=== PATIENT | female | born 1990 | race Hispanic/Latino ===

== ENCOUNTER 2016-11-03 14:52 | Emergency (ER) | payer MEDICAID, OTHER ==
[~2016-11-03] VITALS: Ht 163.8 cm; Wt 57.9 kg
[2016-11-03 15:07] VITALS: RESP 14; O2SAT 98
--- NOTE | 2016-11-03 16:12 | ED.REPORT ---
HPI-General Illness Date of Service Nov 03, 2016 ED Provider: Molly Culp MD The patient was released from assisted and presents to the emergency department with her labor relations supervisor. She was in assisted for "a while" but she is unable to specify. Per nurses notes her labor relations supervisor feels the patient is gravely disabled and disoriented. The patient is unable to answer why she is here today but knows someone brought her here. She states that she is not currently feeling confused. She denies suicidal ideation, homicidal ideation, or hallucinations. She denies history of psychiatric illnesses. History is limited. Nursing Notes Stated Complaint: MENTAL EVAL Chief Complaint: Psychiatric Complaint Nursing Notes Reviewed: Yes Scheduled Cephalexin (Keflex) 500 Mg Capsule 500 MG PO QID General Time Seen by MD: 16:06 Chief Complaint Altered mental status Hx Obtained From: Patient (limited) Arrived By: Walk-in Sudden in Onset?: No Onset Occurred: Onset unknown Symptom Duration: Duration unknown Severity: Current: No pain currently Severity: Maximum: No pain Recent Healthcare: Recent hospitalization Similar Sx Previous: No Past Medical History Past Medical History Pt denies psychiatric history Smoking History Unknown if Ever Smoker Social History Recently released from assisted. Ambulatory Status Independent Unable to Obtain History Past medical history, Past surgical history, Family history, Smoking history Review of Systems Full Review of Systems Psychiatric: Reports: Change mental status, Denies: Hallucinations, auditory, Hallucinations, visual, Homicidal ideation , Suicidal ideation Complete sys rev & neg: except as marked. Physical Exam Vital Signs Vital Signs Date Time Temp Pulse Resp B/P Pulse Ox O2 Delivery O2 Flow Rate FiO2 11/04/16 00:13 35.8 75 12 88/54 96 Room Air 11/03/16 20:14 36.4 77 16 100/66 99 Room Air 11/03/16 17:42 113 16 103/74 98 Room Air 11/03/16 15:07 36.1 14 98 Room Air Initial VS: Reviewed Head / Eyes: Atraumatic, Normocephalic, PERRL ENT: Mucous membranes moist, Conjunctiva normal, No scleral icterus Neck: Supple, Non-tender, Full range of motion Respiratory: Breath sounds normal, Clear to auscultation, No respiratory distress Abdomen / GI: Soft, Non-tender, No guarding, No rebound, No distention Extremities: Vascular intact, Neuro intact, No swelling, No tenderness Skin: Warm, Dry, No cyanosis Neurologic: Alert, Oriented, Nonfocal General/Constitutional: Awake, Alert, No acute distress Disheveled Cardiovascular: Regular rhythm, Heart sounds NL Heart Rate / Rhythm: Positive: Tachycardia Abnormal Mood/Affect: Positive: Flat affect She denies suicidal ideation, homicidal ideation, hallucinations Interpretation & Diagnostics Interpretation & Diagnostics: Urine : negative Urine drug test: positive for THC Breathalyzer: 0 Lab Results Interpretation Result Diagram: 11/03/16 1723 11/03/16 1723 Test 11/03/16 17:23 11/03/16 19:11 White Blood Count 6.5th/mm3 (3.8-10.1) Red Blood Count 5.22mil/mm3 (3.90-5.20) Hemoglobin 15.9g/dL (12.0-15.6) Hematocrit 47.8% (35.0-46.0) Mean Corpuscular Volume 91.6fL (81-100) Mean Corpuscular Hemoglobin 30.5pg (27.0-35.0) Mean Corpuscular Hemoglobin Concent 33.3% (32.0-37.0) Red Cell Distribution Width 13.5% (12.3-15.4) Platelet Count zeb/L (150-400) Neutrophils (%) (Auto) 57.4% (40-74) Lymphocytes (%) (Auto) 30.9% (14-46) Monocytes (%) (Auto) 6.9% (4-12) Eosinophils (%) (Auto) 3.8% (0-5) Basophils (%) (Auto) 0.5% (0-3) Sodium Level 147mEq/L (134-144) Potassium Level 3.9mEq/L (3.5-5.2) Chloride Level 104mEq/L (97-108) Carbon Dioxide Level 24mmol/L (18-29) Blood Urea Nitrogen 21mg/dL (6-20) Creatinine 0.74mg/dL (0.57-1.00) Estimat Glomerular Filtration Rate 138mL/min (>59) Glucose Level 86mg/dL (60-99) Calcium Level 9.3mg/dL (8.5-10.1) Total Bilirubin 0.6mg/dL (0.0-1.2) Aspartate Amino Transf (AST/SGOT) 26U/L (0-50) Alanine Aminotransferase (ALT/SGPT) 18U/L (0-32) Alkaline Phosphatase 63U/L (25-150) Total Protein 8.3g/dL (6.4-8.4) Albumin 4.6g/dL (3.4-5.0) Thyroid Stimulating Hormone (TSH) 0.808uIU/mL (0.450-4.500) Alcohol, Quantitative < 10mg/dL (0-10) Urine Color Yellow (YELLOW) Urine Appearance Clear (CLEAR,HAZY) Urine pH 6.0 (5.0-8.0) Urine Specific Loraine 1.025 (1.003-1.035) Urine Protein Tracemg/dL (NEG,TRACE) Urine Glucose (UA) Negativemg/dL (NEGATIVE) Urine Ketones 40mg/dL (NEGATIVE) Urine Occult Blood Negative (NEGATIVE) Urine Nitrite Negative (NEGATIVE) Urine Bilirubin Negative (NEGATIVE) Urine Urobilinogen Normalmg/dL (NORMAL) Urine Leukocyte Esterase Negative (NEGATIVE) Urine RBC 0-2/hpf (0-2) Urine WBC 6-10/hpf (0-5) Urine Epithelial Cells Few/hpf (NONE-MOD) Urine Crystals None seen (NONE SEEN) Urine Bacteria Moderate/hpf (NONE-FEW) Urine Hyaline Casts None/lpf (NONE) Urine Granular Casts None seen (NONE SEEN) Urine Waxy Casts None seen (NONE SEEN) Urine Red Blood Cell Casts None seen (NONE SEEN) Urine White Blood Cell Casts None seen (NONE SEEN) Urine Mucus Present (None Seen) Urine Trichomonas None seen (NONE SEEN) Urine Yeast None (NONE SEEN) Urinalysis Comment None Urine Culture Reflexed Indicated CT Head Interpretation IMPRESSION: No intracranial disease process. Dictated by: Dalia Tam MD, PhD on 11/03/2016 at 21:44 Study: Head CT no contrast Interpretation / Wet Read by: Interpret - Radiologist Re-Eval/Medical Decision Med Decision/Clinical Course 26-year-old female with unknown medical history brought in by rn case mgr from assisted with concern for disorientation and grave disability. Differential diagnosis includes but is not limited to intracranial mass versus electrolyte abnormality versus psychiatric disorder versus dehydration. Labs show mild dehydration. Patient has been given by mouth fluids in the emergency department. I do not feel she requires IV fluids. She does not show any evidence of acute kidney injury. CT head was negative. She has been medically cleared for evaluation by [facility] who is on their way to evaluate the patient for involuntary admission secondary to grave disability. Care was transitioned to who is aware of pending mental health evaluation. Source of Hx: Old records Time of Eval: 19:02 Re-Evaluation/Progress Note: The patient is unable to provide a urine sample. Nurses attempted in and out catheter and were able to obtain urine. Time of Eval: 20:52 Re-Evaluation/Progress Note: The patient is unwilling to lay flat for CT scan. Will order medication. Time of Eval: 23:00 Re-Evaluation/Progress Note: The patient is medically cleared. Consultation #1: Call Returned at: 16:25 Note: Spoke with Florinda Stuart who believes the patient has been in [facility] for the last 10 days. She is unable to provide any additional information. Consultation #2: Consulted With: dining service worker Call Returned at: 16:35 Note: Spoke with the executive secretary social welfare who was able to get more information about the patient. She was arrested on the and taken to [facility]. She was previously hospitalized at [facility], additional information about this hospitalization is unknown at this time. She was transported from [facility] to [facility] yesterday, booked into the assisted, spent one night, and then she was going to be released this morning but it was noted that she was covered in urine and feces. She is only oriented to self. She has been cooperative until nursing staff attempted to place her into a gown. She has been mostly mute and unable to remember things from one moment to the next. The concern is for grave disability. When the patient is medically cleared, the [facility] will be contacted. Consultation #3: Call Returned at: 16:35 Note: Spoke with Bettye, the patient's dependency case manager who agrees with the above information from the executive secretary social welfare. Consultation #4: Requested Call at: 23:33 Note: [facility] paged at this time. Consultation #5: Call Returned at: 23:53 Note: Spoke with the [facility], a [facility] will be dispatched to evaluate the patient. Counseled Regarding: Diagnosis, Lab results Discharge & Departure Shift Change Sign-Out Patient Care Transferred: Yes Discussed Complaint(s): Yes Laboratory Evaluation: Lab evaluation discussed Imaging Studies: Imaging discussed Response to Therapy: Unchanged, Discussed Await DM Primary Impression: Gravely disabled Discharge Condition All VS Reviewed: Yes Condition: Stable Care Transferred to: Dr. Crowe Care Transferred at: 00:01 Tracy Attestation Portions of this note were transcribed by Malka Aiken. I, Dr. Culp personally performed the history, physical exam and medical decision-making; I reviewed and confirmed the accuracy of the information in the transcribed note. Signed by : Tracy Salinas, 11/03/2016 and [id number]. Molly Culp MD Nov 03, 2016 16:12 Malka Aiken Nov 03, 2016 16:15
[2016-11-03 17:33] LABS: BASOPHILS % (AUTO) 0.5 % (0-3); EOSINOPHILS % (AUTO) 3.8 % (0-5); MONOCYTES % (AUTO) 6.9 % (4-12); Mean Corpuscular Hemoglobin 30.5 pg (27.0-35.0); Mean Corpuscular Volume 91.6 fL (81-100); NEUTROPHILS % (AUTO) 57.4 % (40-74)
[2016-11-03 17:42] VITALS: BP 103/74; PULSE 113; RESP 16; O2SAT 98
[2016-11-03 19:32] LABS: APPEARANCE,URINE CLEAR (CLEAR,HAZY); COLOR,URINE YELLOW (YELLOW)
[2016-11-03 19:33] LABS: OCCULT BLOOD,URINE NEGATIVE (NEGATIVE); UROBILINOGEN,URINE NORMAL (NORMAL)
[2016-11-03 20:14] VITALS: BP 100/66; PULSE 77; RESP 16; O2SAT 99
[2016-11-03] MEDS ORDERED: Haloperidol 5 mg/mL Inj IM PRN (20:55)
--- NOTE | 2016-11-03 21:45 | DRSVH ---
PROCEDURE: CT BRAIN WITHOUT CONTRAST ([id number]) INDICATIONS: confused TECHNIQUE: Noncontrast 4.5 mm thick angled axial sections acquired from the foramen magnum to the vertex, with c oronal reformats. COMPARISON: None. FINDINGS: Image quality: Excellent. CSF spaces: Basal cisterns are patent. No extra-axial fluid collections. Ventricles are normal in size and shape. Brain: No midline shift. No intracranial masses or hemorrhage. Hill-white matter interface is norm al. Skull and face: Calvarium and visualized facial bones are intact, without suspicious lesions. Sinuses: Visualized sinuses and mastoids are clear. IMPRESSION: No intracranial disease process. Dictated by: Dalia Tam MD, PhD on 11/03/2016 at 21:44 Approved by: Dalia Tam MD, PhD on 11/03/2016 at 21:44
[2016-11-03] MEDS ORDERED: CEPH-512 PO (23:52)
[2016-11-03] MEDS ORDERED: cefTRIAXone Inj 1,000 MG, Lidocaine PF 1% Inj 2.1 ML in Syringe 0 EACH IM ONE (23:55)
[2016-11-04 00:13] VITALS: BP 88/54; PULSE 75; RESP 12; O2SAT 96
[2016-11-04 04:25] VITALS: BP 82/54; PULSE 70; RESP 16; O2SAT 96
[2016-11-04 08:00] VITALS: BP 119/69; PULSE 97; RESP 16
[2016-11-04] MEDS ORDERED: risperiDONE 1 mg Tablet PO ONE (14:20)
[2016-11-04 18:21] VITALS: BP 106/58; PULSE 99; RESP 16; O2SAT 99
== END 2016-11-04 18:21 | disposition home or self-care (01) ==
LOC: SED 14:52
DX: N39.0 Urinary tract infection, site not specified (principal); R41.0 Disorientation, unspecified
CPT/HCPCS: 36415; 70450; 80053; 81000; 81025; 82075; 84443; 85025; 87086; 96372; 99285; G0480; J0696; J1200; J1630; J2060